=== PATIENT | male | born 1955 | race Caucasian/White ===

== ENCOUNTER → 2017-10-12 | Outpatient (CLI) | payer BC ==
[~2017-10-12] MED LIST: AMIO400T5 PO; ATR20T PO; CATHETER FLUSH 10 ML SYR IV PRN; DILT240C PO; FINA5TAB6 PO; IOHEXOL 350 MG/ML 100 ML (OMNIPAQUE 350) VIAL IV ONE; LISI5TAB PO; MTP25TSR PO; NFNEB10T PO; NS 250 ML (IVPB) BAG IV ONE; RIVA20TA2 PO; ROSU10TA12 PO
--- NOTE | 2017-10-12 15:25 | Diagnostic Imaging Report ---
INDICATION: Prostate carcinoma. TECHNIQUE: The patient was administered 26.3 mCi technetium 99m MDP intravenously and whole-body imaging was performed after a three-hour delay. COMPARISON: No prior studies are available for comparison. FINDINGS: Normal uptake of radiotracer within the axial and appendicular skeleton is seen. There is uptake by both kidneys with excretion to the urinary bladder. No suspicious foci of tracer accumulation is seen to suggest osseous metastatic disease. There are some degenerative changes in the left foot and both shoulders. IMPRESSION: No scintigraphic evidence of osseous metastatic disease. Dictated by: Dictated on workstation # [id number]
== END ==
LOC: CARD 11:26
PROVIDERS: ATTEND Urology
DX: C61 Malignant neoplasm of prostate (principal)
CPT/HCPCS: 78306

== ENCOUNTER → 2018-02-04 | Outpatient (CLI) | payer BC ==
[~2018-02-04] MED LIST changes: -CATHETER FLUSH 10 ML SYR IV PRN; -IOHEXOL 350 MG/ML 100 ML (OMNIPAQUE 350) VIAL IV ONE; -NS 250 ML (IVPB) BAG IV ONE
== END ==
LOC: CARD 08:38
PROVIDERS: ATTEND Internal Medicine Interventional Cardiology
DX: Z01.810 Encounter for preprocedural cardiovascular examination (principal); E78.5 Hyperlipidemia, unspecified; I10 Essential (primary) hypertension; I42.9 Cardiomyopathy, unspecified; I48.0 Paroxysmal atrial fibrillation; I63.9 Cerebral infarction, unspecified
CPT/HCPCS: 93306

== ENCOUNTER → 2019-03-10 | Outpatient (CLI) | payer BC | LOC: CARD 08:46 | PROVIDERS: ATTEND Internal Medicine | DX: I08.0 Rheumatic disorders of both mitral and aortic valves (principal); I48.91 Unspecified atrial fibrillation | CPT/HCPCS: 93306 ==

== ENCOUNTER → 2019-06-04 | Outpatient (CLI) | payer BC | LOC: CARD 14:40 | PROVIDERS: ATTEND Internal Medicine | DX: I48.91 Unspecified atrial fibrillation (principal) | CPT/HCPCS: 93005 ==